=== PATIENT | male | born 1940 | race Caucasian/White ===

== ENCOUNTER 2017-01-17 14:48 | Emergency (ER) | payer MEDICARE ==
[2017-01-17 15:21] VITALS: BP 153/93
[2017-01-17] MEDS ORDERED: Ibuprofen TAB* 600 MG PO ONE (16:59)
[2017-01-17] MEDS ORDERED: Albuterol 2.5 MG/3 ML NEB.SOL* (0.083%) INH ONE (16:59)
--- NOTE | 2017-01-17 17:04 | UC ---
Throat Pain/Nasal Mykel HPI - HPI Summary HPI Summary: Patient was flying 3 days ago, now has sore throat, fever, right sided sinus pressure, wheezing and SOB on exertion - History of Current Complaint Chief Complaint: UCGeneralIllness Stated Complaint: FEVER Time Seen by Provider: 01/17/17 16:49 Hx Obtained From: Patient Onset/Duration: Sudden Onset, Lasting Days Severity: Moderate Associated Signs & Symptoms: Positive: Dysphagia, Wheezing, Sinus Discomfort, Fever - Epiglottits Risk Factors Epiglottis Risk Factors: Negative - Allergies/Home Medications Allergies/Adverse Reactions: Allergies Allergy/AdvReac Type Severity Reaction Status Date / Time Penicillins Allergy Severe Hives Verified 01/17/17 15:21 PMH/Surg Hx/FS Hx/Imm Hx Previously Healthy: Yes Cardiovascular History Of: Reports: Hypertension - Surgical History Surgical History: Yes Surgery Procedure, Year, and Place: knee arthroscopy- 2006. R sinus surgery 1969. T&A 1970. Right side hernia. Hydrocele - Family History Known Family History: Positive: Hypertension - Social History Alcohol Use: Rare Substance Use Type: None Smoking Status (MU): Former Smoker Amount Used/How Often: a couple packs daily Length of Time of Smoking/Using Tobacco: age 16 to age 31, quit for 7 years, then started again until 1998 When Did the Patient Quit Smoking/Using Tobacco: 1998 Review of Systems Constitutional: Fever, Fatigue Skin: Negative Eyes: Negative ENT: Sore Throat, Other - nasal congestion on right side Respiratory: Shortness Of Breath - on exertion, Cough Cardiovascular: Negative Gastrointestinal: Negative Genitourinary: Negative Motor: Negative Neurovascular: Negative Musculoskeletal: Negative Neurological: Headache All Other Systems Reviewed And Are Negative: Yes Physical Exam Triage Information Reviewed: Yes Appearance: Well-Nourished, Ill-Appearing, Pain Distress Vital Signs: Initial Vital Signs Temp 98.1 F 01/17/17 15:16 Pulse 111 01/17/17 15:16 Resp 18 01/17/17 15:16 BP 153/93 01/17/17 15:16 Pulse Ox 98 01/17/17 15:16 Vital Signs Reviewed: Yes Eye Exam: Normal Eyes: Positive: Conjunctiva Clear ENT: Positive: Pharyngeal erythema - with exudate, Nasal congestion, TM bulging , Tonsillar swelling, Tonsillar exudate Dental Exam: Normal Neck exam: Normal Neck: Positive: Supple, Nontender, No Lymphadenopathy Respiratory Exam: Normal Respiratory: Positive: Chest non-tender, No accessory muscle use, Respiratory distress, Wheezing, Inspiration Cardiovascular Exam: Normal Cardiovascular: Positive: RRR, No Murmur, Pulses Normal Abdominal Exam: Normal Abdomen Description: Positive: Nontender, No Organomegaly, Soft Bowel Sounds: Positive: Present Musculoskeletal Exam: Normal Musculoskeletal: Positive: Strength Intact, ROM Intact, No Edema Neurological Exam: Normal Neurological: Positive: Alert, Muscle Tone Normal Psychological Exam: Normal Skin Exam: Normal Throat Pain/Nasal Course/Dx - Course Course Of Treatment: hx obtained, exam performed, meds reviewed, strep test obtained, ibuprofen given, albuterol neb given with relief, doxycycline prescribed for sinusitis - Differential Dx/Diagnosis Differential Diagnosis/HQI/PQRI: Influenza, Laryngitis, Otitis Media, Pharyngitis, Sinusitis, Tonsillitis, URI Provider Diagnoses: SInusitis. wheezing. fever Discharge - Discharge Plan Condition: Stable Disposition: HOME Prescriptions: DOXYcycline CAP(*) [DOXYcycline 100MG CAP(*)] 100 mg PO BID #14 cap Patient Education Materials: Sinusitis (ED) Referrals: Jodie Finley MD [Primary Care Provider] - Additional Instructions: Take the medication as prescribed. Increase fluid intake, use your inhaler every 4 hours as needed for cough. Follow up with any increase in shortness of breath.
== END 2017-01-17 17:27 | disposition home or self-care (01) ==
LOC: UCCORT 14:48
DX: J32.9 Chronic sinusitis, unspecified (principal); R06.2 Wheezing; R50.9 Fever, unspecified; Z88.0 Allergy status to penicillin; Z87.891 Personal history of nicotine dependence
CPT/HCPCS: 87651; 99212; A9270-GY; G0463

== ENCOUNTER 2017-04-06 09:24 | Emergency (ER) | payer MEDICARE ==
[2017-04-06 10:53] VITALS: BP 157/91
--- NOTE | 2017-04-06 11:31 | UC ---
Throat Pain/Nasal Mykel HPI - HPI Summary HPI Summary: complaint of cough and nasal congestion that started yesterday more fatigued today last night lots of coughing took some OTC medication without relief sometimes cough productive sore throat denies fever and chills denies headaches, mylgias or joint pain denies chest pain and shortness of breath, edema - History of Current Complaint Chief Complaint: UCGeneralIllness Stated Complaint: COUGH Time Seen by Provider: 04/06/17 11:25 Hx Obtained From: Patient - Allergies/Home Medications Allergies/Adverse Reactions: Allergies Allergy/AdvReac Type Severity Reaction Status Date / Time Penicillins Allergy Severe Hives Verified 04/06/17 10:47 Home Medications: Home Medications Losartan TAB* [Cozaar TAB*] 100 mg PO DAILY 04/06/17 [History Confirmed 04/06/17 ] PMH/Surg Hx/FS Hx/Imm Hx Previously Healthy: Yes Cardiovascular History: Hypertension - Surgical History Surgical History: Yes Surgery Procedure, Year, and Place: knee arthroscopy- 2006. R sinus surgery 1969. T&A 1970. Right side hernia. Hydrocele - Family History Known Family History: Positive: Hypertension Negative: Cardiac Disease, Diabetes - Social History Occupation: Retired Lives: With Family Alcohol Use: None Substance Use Type: None Smoking Status (MU): Former Smoker Amount Used/How Often: a couple packs daily Length of Time of Smoking/Using Tobacco: age 16 to age 31, quit for 7 years, then started again until 1998 When Did the Patient Quit Smoking/Using Tobacco: 1998 Review of Systems Constitutional: Fatigue Skin: Negative Eyes: Negative ENT: Sore Throat, Sinus Congestion Respiratory: Cough Cardiovascular: Negative Gastrointestinal: Negative Genitourinary: Negative Motor: Negative Neurovascular: Negative Musculoskeletal: Negative Neurological: Negative Psychological: Negative All Other Systems Reviewed And Are Negative: Yes Physical Exam Triage Information Reviewed: Yes Appearance: No Pain Distress, Well-Nourished Vital Signs: Initial Vital Signs Temp 99.2 F 04/06/17 10:49 Pulse 81 04/06/17 10:49 Resp 16 04/06/17 10:49 BP 157/91 04/06/17 10:49 Pulse Ox 99 04/06/17 10:49 Vital Signs Reviewed: Yes Eyes: Positive: Conjunctiva Clear ENT: Positive: Pharyngeal erythema, Nasal congestion, Nasal drainage, TMs normal Neck: Positive: No Lymphadenopathy Respiratory: Positive: Lungs clear, Normal breath sounds, No respiratory distress Cardiovascular: Positive: RRR, No Murmur, Pulses Normal, Brisk Capillary Refill Abdomen Description: Positive: Nontender, Soft Bowel Sounds: Positive: Present Musculoskeletal: Positive: No Edema Neurological: Positive: Alert Psychological Exam: Normal Skin Exam: Normal Throat Pain/Nasal Course/Dx - Differential Dx/Diagnosis Differential Diagnosis/HQI/PQRI: Sinusitis, URI Provider Diagnoses: URI Discharge - Discharge Plan Condition: Stable Disposition: HOME Prescriptions: Benzonatate CAP* [Tessalon 100 MG CAP*] 100 mg PO TID #30 cap Patient Education Materials: Upper Respiratory Infection (ED) Referrals: Jodie Finley MD [Primary Care Provider] - Additional Instructions: Your blood pressure is elevated. Please contact your primary care provider within 1 -4 weeks for further evaluation. Please start tessalon as directed Increase fluids and rest Take acetaminophen for fever or pain Please review your discharge instructions. If your symptoms do not improve please call your primary care provider or return to urgent care.
== END 2017-04-06 11:49 | disposition home or self-care (01) ==
LOC: UCCORT 09:24
DX: J06.9 Acute upper respiratory infection, unspecified (principal); Z87.891 Personal history of nicotine dependence; I10 Essential (primary) hypertension
CPT/HCPCS: 99212; G0463

== ENCOUNTER 2018-01-16 09:06 | Emergency (ER) | payer MEDICARE ==
[2018-01-16 09:41] VITALS: BP 149/94
--- NOTE | 2018-01-16 10:23 | RAD ---
INDICATION: Left knee pain COMPARISON: None TECHNIQUE: AP, lateral, and oblique views were obtained. FINDINGS: The bony structures appear normal for age. The knee articulates normally. There is a small suprapatellar joint effusion. There are vascular calcifications. IMPRESSION: NO ACUTE BONY FINDINGS. SMALL JOINT EFFUSION.
--- NOTE | 2018-01-16 10:28 | UC ---
Knee Pain HPI - HPI Summary HPI Summary: 77 yo male with left knee pain and swelling x 3 days no trauma pain is medial no locking or buckling - History of Current Complaint Chief Complaint: UCLowerExtremity Stated Complaint: LFT KNEE PAIN Time Seen by Provider: 01/16/18 09:52 Hx Obtained From: Patient Onset/Duration: Gradual Onset, Lasting Days Severity Initially: Moderate Severity Currently: Mild Pain Intensity: 2 Pain Scale Used: 0-10 Numeric Character: Dull, Aching Aggravating Factor(s): Weight Bearing Alleviating Factor(s): Rest Associated Signs And Symptoms: Positive: Swelling Able to Bear Weight: Yes - Allergies/Home Medications Allergies/Adverse Reactions: Allergies Allergy/AdvReac Type Severity Reaction Status Date / Time Penicillins Allergy Hives Verified 01/16/18 09:30 Home Medications: Home Medications Propranolol TAB* [Inderal TAB*] 60 mg PO DAILY 01/16/18 [History Confirmed 01/16] PMH/Surg Hx/FS Hx/Imm Hx Previously Healthy: Yes Cardiovascular History: Hypertension - Surgical History Surgical History: Yes Surgery Procedure, Year, and Place: R knee arthroscopy- 2006. R sinus surgery 1969. T&A 1970. Right side hernia. Hydrocele - Family History Known Family History: Positive: Hypertension Negative: Cardiac Disease, Diabetes - Social History Alcohol Use: Occasionally Substance Use Type: None Smoking Status (MU): Former Smoker Amount Used/How Often: a couple packs daily Length of Time of Smoking/Using Tobacco: age 16 to age 31, quit for 7 years, then started again until 1998 When Did the Patient Quit Smoking/Using Tobacco: 1998 Review of Systems Constitutional: Negative Skin: Negative Eyes: Negative ENT: Negative Respiratory: Negative Cardiovascular: Negative Gastrointestinal: Negative Genitourinary: Negative Motor: Negative Neurovascular: Negative Musculoskeletal: Myalgia Neurological: Negative Psychological: Negative Is Patient Immunocompromised?: No All Other Systems Reviewed And Are Negative: Yes Physical Exam Triage Information Reviewed: Yes Appearance: Well-Appearing, No Pain Distress, Well-Nourished Vital Signs: Initial Vital Signs Temp 98.0 F 01/16/18 09:36 Pulse 69 01/16/18 09:36 Resp 18 01/16/18 09:36 BP 149/94 01/16/18 09:36 Pulse Ox 96 01/16/18 09:36 Eyes: Positive: Conjunctiva Clear ENT: Negative: Pharynx normal, TMs normal, Trismus, Muffled voice, Hoarse voice Neck: Positive: Supple, Nontender, No Lymphadenopathy Respiratory: Positive: Lungs clear, Normal breath sounds, No respiratory distress Cardiovascular: Positive: RRR, No Murmur Musculoskeletal: Positive: Other: - tender medial joint line, effusion, stable joint, mildly antalgic gait Neurological: Positive: Alert Psychological Exam: Normal Skin Exam: Normal Diagnostics - Radiology No standard instances Xray Interpretation: No Acute Changes - NO ACUTE BONY FINDINGS. SMALL JOINT EFFUSION Radiology Interpretation Completed By: Radiologist Knee Pain Course/Dx - Differential Dx/Diagnosis Provider Diagnoses: left knee pain. suspect medial meniscus tear Discharge - Sign-Out/Discharge Documenting (check all that apply): Discharge - Discharge Plan Condition: Stable Disposition: HOME Patient Education Materials: Peripheral Vascular Disease (ED), Meniscus Tear ( ED) Referrals: Chilo Villagran MD [Medical Doctor] - As Soon As Possible Jodie Finley MD [Primary Care Provider] - 2 Weeks (your arteries were calcified on you xray. I think you have some peripheral vascular disease.) Additional Instructions: ice twice daily yo can take aleve 1-2 twice daily if you need it for pain - Billing Disposition and Condition Condition: STABLE Disposition: HOME
== END 2018-01-16 10:43 | disposition home or self-care (01) ==
LOC: UCCORT 09:06
DX: M25.562 Pain in left knee (principal); M25.462 Effusion, left knee; Z87.891 Personal history of nicotine dependence; Z88.0 Allergy status to penicillin
CPT/HCPCS: 99211; G0463

== ENCOUNTER 2019-12-11 11:10 | Emergency (ER) | payer MEDICARE ==
[2019-12-11 13:02] VITALS: BP 145/83
--- NOTE | 2019-12-11 13:08 | UC ---
Respiratory Complaint HPI - HPI Summary HPI Summary: approx 6-9 days of intermittent cough, nasal congestion,w/ some sob and assoc fever (tmax 103.8F which lasted 2 days). cough is productive w/ clear mucus. nothing makes it better/worse. - History of Current Complaint Chief Complaint: UCRespiratory Stated Complaint: COUGH, CONGESTION, FEVER Time Seen by Provider: 12/11/19 13:07 Hx Obtained From: Patient Pain Intensity: 0 Pain Scale Used: 0-10 Numeric Aggravating Factors: Nothing Alleviating Factors: Nothing - Allergies/Home Medications Allergies/Adverse Reactions: Allergies Allergy/AdvReac Type Severity Reaction Status Date / Time Penicillins Allergy Hives Verified 12/11/19 12:58 Home Medications: Home Medications Azithromycin TAB* [Zithromax TAB (Z-JESSICA) 250 mg #6 tabs] 2 tab PO .TODAY, THEN 1 DAILY #1 [email or web address] 12/11/19 [Rx] Losartan Potassium 100 mg PO DAILY 12/11/19 [History Confirmed 12/11/19] Meloxicam(NF) [Mobic(NF)] 15 mg PO DAILY 12/11/19 [History Confirmed 12/11/19] PMH/Surg Hx/FS Hx/Imm Hx Previously Healthy: Yes - Surgical History Surgical History: Yes Surgery Procedure, Year, and Place: R knee arthroscopy- 2006. R sinus surgery 1969. T&A 1970. Right side hernia. Hydrocele - Family History Known Family History: Positive: Hypertension Negative: Cardiac Disease, Diabetes - Social History Alcohol Use: Rare Substance Use Type: None Smoking Status (MU): Former Smoker Amount Used/How Often: a couple packs daily Length of Time of Smoking/Using Tobacco: age 16 to age 31, quit for 7 years, then started again until 1998 When Did the Patient Quit Smoking/Using Tobacco: 1998 Review of Systems All Other Systems Reviewed And Are Negative: Yes Constitutional: Positive: Fever. Negative: Chills, Fatigue Skin: Negative: Rash ENT: Positive: Nasal Discharge, Sinus Congestion. Negative: Sore Throat, Ear Ache Respiratory: Positive: Shortness Of Breath, Cough Cardiovascular: Negative: Chest Pain Gastrointestinal: Negative: Vomiting, Diarrhea Neurological/Mental Status: Negative: Headache Physical Exam Triage Information Reviewed: Yes Appearance: Well-Appearing Vital Signs: Initial Vital Signs Temp 98.1 F 12/11/19 12:56 Pulse 90 12/11/19 12:56 Resp 20 02/22/20 12:56 BP 145/83 12/11/19 12:56 Pulse Ox 98 12/11/19 12:56 Vital Signs Reviewed: Yes Eyes: Positive: Conjunctiva Clear ENT: Positive: Pharynx normal, Nasal congestion, TMs normal, Uvula midline. Negative: Sinus tenderness Neck: Positive: Supple, Nontender, No Lymphadenopathy Respiratory Exam: Normal Cardiovascular Exam: Normal Neurological: Positive: Alert Skin: Negative: Rashes Respiratory Course/Dx - Course Course Of Treatment: cough w/ fever which has resolved. Cough has persisted and now intermittent sob. currently not sob and clear lungs on exam. reasonable to tx w/ antibx, and rapid flu neg. advised to go to ED if worsening. - Differential Dx/Diagnosis Differential Diagnosis/HQI/PQRI: Bronchitis, Influenza, Lower Resp Infection, Sinusitis Provider Diagnosis: Cough Discharge ED - Sign-Out/Discharge Documenting (check all that apply): Patient Departure All imaging exams completed and their final reports reviewed: No Studies - Discharge Plan Condition: Good Disposition: HOME Prescriptions: Azithromycin TAB* [Zithromax TAB (Z-JESSICA) 250 mg #6 tabs] 2 tab PO .TODAY, THEN 1 DAILY #1 [email or web address] Patient Education Materials: Acute Bronchitis (ED) Referrals: Kelley Quiroz MD [Primary Care Provider] - Additional Instructions: please see your pcp if not improving - Billing Disposition and Condition Condition: GOOD Disposition: Home
[2019-12-11 13:31] LABS: Influenza A Molecular Negative (Negative); Influenza B Molecular Negative (Negative)
== END 2019-12-11 13:46 | disposition home or self-care (01) ==
LOC: UCCORT 11:10
DX: R05 Cough (principal); R06.02 Shortness of breath; R09.89 Other specified symptoms and signs involving the circulatory and respiratory systems; Z88.0 Allergy status to penicillin; Z87.891 Personal history of nicotine dependence
CPT/HCPCS: 99212; G0463